=== PATIENT | male | born 1950 | race Caucasian/White ===

== ENCOUNTER → 2017-03-16 | Outpatient (CLI) | payer OTHER ==
--- NOTE | 2017-03-16 08:07 | DIAGNOSTIC IMAGING REPORT ---
PROCEDURE: CT ABDOMEN/PELVIS W/O CONTRAST INDICATION: ELEVATED PSA TECHNIQUE: Noncontrast axial images were obtained of the entire abdomen and pelvis with sagittal and coronal reformations. COMPARISON: None. FINDINGS: ABDOMEN: Lung base are clear. Heart size is normal. Liver, gallbladder, pancreas, spleen and adrenal glands are normal. Left renal lower pole surgical changes. Bilateral renal cysts, largest on the left 2.2 cm. Mild atherosclerosis of the aorta. Nonspecific bowel gas pattern. PELVIS: Enlarged prostate (6 cm) with dystrophic calcifications. Normal bladder. Normal appendix. No pelvic mass,, inflammatory changes or free fluid. Right lower quadrant subcutaneous small radiodensity. Mild to moderate degenerative changes of the spine. Mild chronic T10 and T11 compression fractures. No suspicious osseous lesions. IMPRESSION: 1. Left renal lower pole surgical changes 2. Bilateral renal cysts 3. Enlarged prostate All CT scans at this facility use dose modulation, iterative reconstruction, and/or weight-based dosing when appropriate to reduce radiation dose to as low as reasonably achievable.
== END ==
LOC: CT SRH 07:24
DX: R97.20 Elevated prostate specific antigen [PSA] (principal); N18.2 Chronic kidney disease, stage 2 (mild); N40.1 Benign prostatic hyperplasia with lower urinary tract symptoms; N28.1 Cyst of kidney, acquired; Z85.528 Personal history of other malignant neoplasm of kidney